=== PATIENT | female | born 1955 | race Caucasian/White ===

== ENCOUNTER → 2017-08-16 | Outpatient (CLI) | payer OTHER ==
[~2017-08-16] MED LIST: AMLO5TAB2 PO; AZIT500T5 PO; CHOL200024 PO; DIPH25CA61 PO; DULO30CA2 PO; ESOM40CA PO; NEBI5TAB2 PO; RABE20TA26 PO; SPIR25TA3 PO; SPIR50TA2 PO; VENL75TA PO
[2017-08-16 14:52] LABS: HEMATOCRIT 44.7 % (34.6-47.8); HEMOGLOBIN 15.1 g/dL (11.7-16.4)
== END | disposition home or self-care (01) ==
LOC: STAR 13:40
PROVIDERS: ATTEND Obstetrics & Gynecology
DX: Z01.818 Encounter for other preprocedural examination (principal); N95.0 Postmenopausal bleeding; R19.09 Other intra-abdominal and pelvic swelling, mass and lump
CPT/HCPCS: 36415; 71020; 85025; 93005

== ENCOUNTER 2017-08-20 07:07 | Day surgery (SDC) | payer OTHER ==
[~2017-08-20] VITALS: Ht 160 cm; Wt 90.9 kg
[2017-08-20 08:15] VITALS: BP 147/87
[2017-08-20] MEDS ORDERED: EPINEPHRINE 1 MG/ML, 1ML ONE ×2 (08:44→09:41)
[2017-08-20] MEDS ORDERED: BUPIVACAINE/PF 0.25% ONE ×2 (08:44→09:41)
[2017-08-20] MEDS ORDERED: SILVER NITRATE STICK TP ONE (08:44)
[2017-08-20] MEDS ORDERED: FENTANYL PF 100 MCG/2ML ONE (08:55)
[2017-08-20] MEDS ORDERED: GLYCOPYRROLATE 0.2MG/1ML, 5ML ONE (08:58)
[2017-08-20] MEDS ORDERED: EPHEDRINE 50 MG/ML, 1ML ONE (08:58)
[2017-08-20] MEDS ORDERED: PROPOFOL 10 MG/ML, 20ML ONE (08:58)
[2017-08-20] MEDS ORDERED: ONDANSETRON 2MG/ML, 2ML ONE (08:58)
[2017-08-20] MEDS ORDERED: PHENYLEPHRINE 10 MG/ML ONE (08:58)
[2017-08-20] MEDS ORDERED: NEOSTIGMINE 1 MG/ML, 10ML ONE (08:58)
[2017-08-20] MEDS ORDERED: SUCCINYLCHOLINE 20 MG/ML, 10ML ONE (08:58)
[2017-08-20] MEDS ORDERED: CEFAZOLIN 1,000 MG ONE (08:58)
[2017-08-20] MEDS ORDERED: ROCURONIUM 10 MG/ML,10ML ONE (08:58)
[2017-08-20] MEDS ORDERED: DEXAMETHASONE 4 MG/ML, 1ML ONE (08:58)
[2017-08-20] MEDS ORDERED: LIDOCAINE-MPF 2% ,5ML ONE (08:58)
[2017-08-20] MEDS ORDERED: hydrALAzine 20 MG/ML, 1ML IV PRN ×2 (09:30→10:30)
[2017-08-20] MEDS ORDERED: ACETAMINOPHEN 325 MG TABLET PO PRN ×2 (09:30→10:30)
[2017-08-20] MEDS ORDERED: METOPROLOL 1 MG/ML, 5ML IV PRN (09:30)
[2017-08-20] MEDS ORDERED: HYDROmorphone 1 MG/ML, 1ML IV PRN ×3 (09:30→14:00)
[2017-08-20] MEDS ORDERED: LORazepam 2 MG/ML, 1ML IVPush PRN ×2 (09:30→10:30)
[2017-08-20] MEDS ORDERED: OXYcodone 5 MG/5 ML ORAL.SOL UDC PO PRN ×2 (09:30→10:30)
[2017-08-20] MEDS ORDERED: FENTANYL PF 100 MCG/2ML IV PRN ×2 (09:30→10:30)
[2017-08-20] MEDS ORDERED: PROMETHAZINE 25 MG/ML, 1ML IV PRN ×2 (09:30→10:30)
[2017-08-20] MEDS ORDERED: ALBUTEROL SULFATE 2.5 MG/3 ML NPPB PRN ×2 (09:30→10:30)
[2017-08-20] MEDS ORDERED: MEPERIDINE/PF 25MG/0.5ML IVPush PRN ×2 (09:30→10:30)
[2017-08-20] MEDS ORDERED: HYDROmorphone 1 MG/ML, 1ML ONE (09:55)
[2017-08-20] MEDS ORDERED: LABETALOL 5MG/ML, 20ML IV PRN (10:30)
[2017-08-20] MEDS ORDERED: OXYcodone 5 MG/5 ML ORAL.SOL UDC ONE (10:59)
[2017-08-20 12:31] VITALS: BP 116/80
[2017-08-20] MEDS ORDERED: morphine SULFATE 10 MG/ML, 1ML IV PRN (14:00)
[2017-08-20] MEDS ORDERED: OXYcodone/APAP 5/325MG TABLET PO PRN (14:00)
[2017-08-20 15:13] LABS: HEMATOCRIT 44.2 % (34.6-47.8); HEMOGLOBIN 14.7 g/dL (11.7-16.4); WHITE BLOOD COUNT 12.9 x10^3/uL (3.4-10)
[2017-08-20] MEDS ORDERED: IBUPROFEN 600 MG TABLET PO SCH (16:00)
[2017-08-20 19:27] VITALS: BP 121/75
[2017-08-20] MEDS ORDERED: OXYC-302 PO (19:33)
[2017-08-20] MEDS ORDERED: IBUP-1222 PO (19:35)
[2017-08-20] MEDS ORDERED: DOCU-131 PO (19:37)
[2017-08-20] MEDS ORDERED: AMLODIPINE 5 MG TABLET PO SCH (21:00)
[2017-08-21] MEDS ORDERED: NEBIVOLOL HCL 5 MG TABLET PO SCH (06:00)
[2017-08-21] MEDS ORDERED: PANTOPROZOLE 40MG TABLET PO SCH (07:30)
[2017-08-21] MEDS ORDERED: SPIRONOLACTONE 50 MG TABLET PO SCH (09:00)
[2017-08-21] MEDS ORDERED: DULOXETINE 30 MG CAPSULE.DR PO SCH (09:00)
[2017-08-21] MEDS ORDERED: CHOLECALCIFEROL 1,000 UNIT TABLET PO SCH (09:00)
== END 2017-08-20 19:56 | disposition home or self-care (01) ==
LOC: SDC 07:07 → 4NOR 07:07 → SDC 19:56
PROVIDERS: ATTEND Obstetrics & Gynecology
DX: N95.0 Postmenopausal bleeding (principal); N84.0 Polyp of corpus uteri; I10 Essential (primary) hypertension; Z88.0 Allergy status to penicillin; Z88.8 Allergy status to other drugs, medicaments and biological substances
CPT/HCPCS: 36415; 49320; 58558; 85025; 88305; J0171; J0330; J0690; J1100; J1170; J2370; J2405; J2704; J2710; J3010; J3490